=== PATIENT | male | born 1995 | race African-American/Black ===

== ENCOUNTER 2021-04-08 14:21 | Outpatient (REF) | payer OTHER, SELFPAY | END 2021-04-08 14:22 | disposition home or self-care (01) | LOC: HO.HMGCLDS 14:21 | PROVIDERS: Visit Provider Internal Medicine | DX: Z20.822 Contact with and (suspected) exposure to COVID-19 (principal) | CPT/HCPCS: C9803; U0003; U0005 ==

== ENCOUNTER 2021-04-19 08:51 | Outpatient (REF) | payer OTHER, SELFPAY | END 2021-04-19 08:52 | disposition home or self-care (01) | LOC: HO.HMGCLDS 08:51 | PROVIDERS: Visit Provider Internal Medicine | DX: Z20.822 Contact with and (suspected) exposure to COVID-19 (principal) | CPT/HCPCS: C9803; U0003; U0005 ==